=== PATIENT | male | born 1965 | race Caucasian/White ===

== ENCOUNTER → 2017-02-09 | Day surgery (SDC) | payer OTHER ==
[~2017-02-09] VITALS: Ht 180.3 cm; Wt 104.3 kg
[~2017-02-09] MED LIST: INVOKANA100 M1 PO; JANUMET XR 50-1 EAC1; LISINOPRIL10 M1 PO; SIMVASTATIN20 M2 PO
--- NOTE | 2017-02-09 12:40 | Operative Report ---
Operative/Inv Procedure Report Surgery Date: 02/09/17 Name of Procedure: Circumcision Pre-Operative Diagnosis: Phimosis Post-Operative Diagnosis: Same Estimated Blood Loss: less than 50ml Surgeon/Digital Production Manager: Jerry MCCLURE, Paris JAY MD,PARIS Gonzales Anesthesia: laryngeal mask airway Drains: None Specimens: Foreskin Complications: None Condition: Stable Operative Indication: Significant phimosis with recurrent episodes of balanitis Operative/Procedure Note Note: The patient was taken to the operating room and identified. He was placed in the supine position on the operating table and a timeout was executed appropriately with the patient awake. Gen. anesthesia was induced via LMA. Patient was then prepped and draped in usual fashion for penile surgery. Surgical pause was executed appropriately. A dorsal slit was then made so that the foreskin could be retracted its hosing the glans. The glans was then prepped with Betadine again. At this point the foreskin was placed back in the usual position. A circumferential incision was made in the skin of the penis at the level of the narvaez. The foreskin was then retracted and a second circumferential incision made proximally 1 cm proximal to the narvaez. The dorsal slit was completed at this point. Using sharp dissection the skin between the 2 circumferential incisions was removed by sharp dissection. At this point hemostasis was obtained. The 2 free skin edges were then approximated with 2-0 chromic interrupted sutures. The initial suture was at the 6 o'clock position was a horizontal mattress suture to control the frenular vessels. Sutures were then placed at 12:00, 3:00 and 9:00. Within each quadrant 3 sutures of 2-0 chromic were placed. At this point the incision was closed and no significant bleeding was noted. Sterile compressive dressing was placed on the wound. The patient tolerated the procedure well and as completion was taken to recovery room in stable condition. Sponge needle and stomach count reported correct by the scrub nurse at the end of the procedure. Findings: Significant phimosis Discharge Disposition: PACU
== END ==
LOC: STS 05:01
DX: N47.1 Phimosis (principal); E11.8 Type 2 diabetes mellitus with unspecified complications; Z79.84 Long term (current) use of oral hypoglycemic drugs; I10 Essential (primary) hypertension; E78.00 Pure hypercholesterolemia, unspecified
CPT/HCPCS: 88304; J0690; J1885; J2250; J3010